=== PATIENT | male | born 1950 | race African-American/Black ===

== ENCOUNTER 2024-07-07 14:41 | Inpatient (IN) | payer OTHER ==
[2024-07-07 15:46] VITALS: BMI 18.8
[2024-07-07] MEDS ORDERED: diazePAM 5 MG TABLET PO PRN (16:03)
[2024-07-07] MEDS ORDERED: BISMUTH SUBSALICYLATE 524 MG/30 ML PO PRN (16:03)
[2024-07-07] MEDS ORDERED: ONDANSETRON *ODT* 4 MG TABLET SL PRN (16:03)
[2024-07-07] MEDS ORDERED: MAG HYDROX/AL HYDROX/SIMETH 30 ML UNIT-DOSE CUP PO PRN (16:03)
[2024-07-07] MEDS ORDERED: MAGNESIUM HYDROX 2400MG/30ML ORAL SUSPENSION 30 ML CUP PO PRN (16:03)
[2024-07-07] MEDS ORDERED: hydrOXYzine PAMOATE 25 MG CAPSULE (FP) PO PRN (16:03)
[2024-07-07] MEDS ORDERED: guaiFENesin 600 MG TABLET.ER (FP) PO PRN (16:03)
[2024-07-07] MEDS ORDERED: DICYCLOMINE HCL 10 MG CAPSULE PO PRN (16:03)
[2024-07-07] MEDS ORDERED: BENZOCAINE/MENTHOL (CHLORASEPTIC ) LOZENGE MM PRN (16:03)
[2024-07-07] MEDS ORDERED: NALOXONE (NARCAN) HCL 4 MG/0.1 ML SPRAY NS PRN (16:03)
[2024-07-07] MEDS ORDERED: IBUPROFEN 600 MG TABLET (FP) PO PRN (16:03)
[2024-07-07] MEDS ORDERED: ACETAMINOPHEN 325 MG TABLET (FP) PO PRN (16:03)
[2024-07-07] MEDS ORDERED: METHOCARBAMOL 500 MG TABLET PO PRN (16:03)
[2024-07-07] MEDS ORDERED: POLYETHYLENE GLYCOL (HEALTHYLAX) 3350 17 GM PACKET PO PRN (16:03)
[2024-07-07] MEDS ORDERED: BENZONATATE 200 MG CAPSULE PO PRN (16:03)
[2024-07-07] MEDS ORDERED: IBUPROFEN 400 MG TABLET (FP) PO PRN (16:03)
[2024-07-07] MEDS ORDERED: LOPERAMIDE HCL 2 MG CAPSULE PO PRN (16:03)
[2024-07-07] MEDS: PRENATAL VITAMINS W/ FOLIC ACID TABLET (FP) PO SCH (16:15)
[2024-07-07] MEDS: MELATONIN 5 MG TABLETS PO SCH (22:29)
[2024-07-07] MEDS: ACAMPROSATE CALCIUM 333 MG TABLET.DR PO SCH (22:29)
[2024-07-07] MEDS: THIAMINE 100 MG TABLET PO SCH (22:29)
[2024-07-07] MEDS: diazePAM 5 MG TABLET PO SCH (22:30)
[2024-07-08 10:00] LABS: HEMATOCRIT 39.4 % (40.1-51.0); HEMOGLOBIN 12.7 g/dL (13.7-17.5); MCHC 32.2 g/dl (32.3-36.5); MEAN CELL VOLUME 91.8 fl (79.0-92.2); PLATELET COUNT 111 x10^3/uL (163-337); RDW 13.8 % (12.2-16.6)
[2024-07-08] MEDS: TOPIRAMATE 25 MG TABLET PO SCH (10:45)
[2024-07-08 10:51] LABS: CHLORIDE 108 mmol/L (98-107); SODIUM 142 mmol/L (136-145)
[2024-07-08 11:01] LABS: BLOOD UREA NITROGEN 15.9 mg/dL (7-18); CALCIUM 9.4 mg/dL (8.5-10.1); GLUCOSE,RANDOM 103 mg/dL (74-106)
[2024-07-08 11:02] LABS: ALBUMIN 3.2 g/dl (3.4-5.0); ANION GAP 5 mmol/L (4-13); CO2 29 mmol/L (21-32)
[2024-07-08 11:05] LABS: BILIRUBIN,TOTAL 0.3 mg/dL (0.2-1); CREATININE 0.7 mg/dL (0.55-1.3); SGPT/ALT 24 U/L (13-61); TOT PROT 6.9 g/dl (6.4-8.2)
[2024-07-08 11:07] LABS: ALK PHOS 101 U/L (45-117); SGOT/AST 23 U/L (15-37)
[2024-07-08] MEDS ORDERED: ALBUTEROL SO4 HFA INHALER IH PRN (12:02)
[2024-07-08] MEDS: methaDONE HCL 10 MG TABLET PO ONE (12:18)
[2024-07-08] MEDS: methaDONE 80 MG, methaDONE 10 MG PO ONE (12:23)
[2024-07-08] MEDS: cloNIDine HCL 0.1 MG TABLET PO PRN (19:01)
[2024-07-09] MEDS: diazePAM 5 MG TABLET PO SCH (05:17)
[2024-07-09] MEDS: methaDONE 80 MG, methaDONE 10 MG PO ONE (10:33)
[2024-07-10] MEDS: diazePAM 5 MG TABLET PO SCH (05:14)
[2024-07-10] MEDS ORDERED: methaDONE HCL 10 MG TABLET PO SCH (10:00)
[2024-07-10] MEDS: methaDONE 80 MG, methaDONE 10 MG PO SCH (10:32)
[2024-07-11] MEDS: diazePAM 5 MG TABLET PO ONE (05:33)
[2024-07-11 05:51] VITALS: RESP 16
[2024-07-11 08:51] VITALS: BP 119/75; PULSE 74; TEMP 97.5
== END 2024-07-11 10:08 | disposition home or self-care (01) | DRG 897 ==
LOC: YASAS 14:41 → Y3N 17:29
PROVIDERS: ADMIT Allergy & Immunology; ATTEND Allergy & Immunology
PROC: HZ2ZZZZ Detoxification Services for Substance Abuse Treatment (ICD-10-PCS; principal; 2024-07-07)
DX: F10.230 Alcohol dependence with withdrawal, uncomplicated (principal); F11.20 Opioid dependence, uncomplicated; F14.20 Cocaine dependence, uncomplicated; Z59.00 Homelessness unspecified; F13.230 Sedative, hypnotic or anxiolytic dependence with withdrawal, uncomplicated; F17.210 Nicotine dependence, cigarettes, uncomplicated; F41.9 Anxiety disorder, unspecified; F32.A Depression, unspecified; F43.10 Post-traumatic stress disorder, unspecified; J45.909 Unspecified asthma, uncomplicated; Z86.19 Personal history of other infectious and parasitic diseases
CPT/HCPCS: 36415; 80053; 80305; 80307; 85027; 86780; 93005; 93010